=== PATIENT | male | born 1975 | race Caucasian/White ===

== ENCOUNTER 2021-08-25 03:06 | Emergency (ER) | payer BC ==
[2021-08-25] MEDS ORDERED: Aspirin 81 MG Tab.Chew PO ONE (03:09)
[2021-08-25] MEDS ORDERED: Heparin Sodium 5,000 Units/ML Vial IVPUSH ONE (03:27)
[2021-08-25] MEDS ORDERED: Clopidogrel 75 MG Tab PO ONE (03:29)
[2021-08-25] MEDS ORDERED: Morphine 4 MG/ML Syringe IVPUSH ONE (03:30)
[2021-08-25] MEDS ORDERED: Sodium Chloride 0.9% 1,000 ML IV SCH (03:30)
[2021-08-25] MEDS ORDERED: Heparin Sodium/0.45% NaCl 500 ML IV SCH (03:30)
--- NOTE | 2021-08-25 03:51 | EDM.PDOC ---
ED HPI GENERAL MEDICAL PROBLEM - General Chief Complaint: Chest Pain Stated Complaint: SHORTNESS OF BREATH Time Seen by Provider: 08/25/21 03:07 - History of Present Illness INITIAL COMMENTS - FREE TEXT/NARRATIVE: CHIEF COMPLAINT(S): Chest pain HISTORY OF PRESENT ILLNESS: This is a 46-year-old man with a past medical history of tobacco use disorder and obesity who presents to the emergency department as a medical resuscitation via walk-in triage with a chief complaint of chest pain. The patient states that approximately 30 minutes prior to arrival he started to experience central chest pain with radiation to his both arms. He currently rates his pain as 10 out of 10 and sharp. He also describes the pain as pressure-like. He states that he did feel sweaty but denies any nausea or vomiting and feels a weird sensation in his face. He denies any shortness of breath, abdominal pain, nausea or vomiting. He denies any history of recent travel, recent surgery or prior history of DVT or PE. He states that there was no exacerbating factors and nothing seems to be relieving the pain. . REVIEW OF SYSTEMS: Constitutional: Positive for diaphoresis denies fever, chills. Eyes: Denies eye pain Ears, Nose, Mouth, & Throat: Denies earache Cardiovascular: Positive for chest pain Respiratory: Denies shortness of breath Gastrointestinal: Denies Nausea, vomiting, diarrhea, hematochezia. Genitourinary: Denies hematuria Skin:Denies a rash MSK: Positive for bilateral arm pain Neurological: Denies blurred vision Psychiatric: Denies depression PAST MEDICAL HISTORY: As per history of present illness and as reviewed below otherwise noncontributory. SURGICAL HISTORY: As per history of present illness and as reviewed below otherwise noncontributory. SOCIAL HISTORY: As per history of present illness and as reviewed below otherwise noncontributory. FAMILY HISTORY: As per history of present illness and as reviewed below otherwise noncontributory. EXAMINATION OF ORGAN SYSTEMS/BODY AREAS: VITALS: Blood pressure is 130/86, heart rate 91, respiratory rate 22 with an oxygen saturation of 99% on room air. Temperature 36.6. GENERAL: Young man who appears to be mildly diaphoretic and tachypneic. HEAD: Normocephalic, atraumatic. EYES: EOMs intact. PERRL. ENT. External ears WNL. Nares patent. Oropharynx is clear with no erythema or exudate. No uvular or tongue swelling. NECK: Supple, no masses. Trachea is midline. LUNGS: Mild tachypnea without any intercostal retractions. Clear to auscultation bilaterally. No wheezing, rales, stridor or rhonchi.. CARDIOVASCULAR: Regular rate and rhythm with S1-S2. No murmur, rubs or gallops. No edema. No JVD. ABDOMEN: Soft, non-distended, non-tender. Bowel sounds present in all 4 quadrants. No rebound tenderness, guarding, or peritoneal signs. MUSCULOSKELETAL: No deformity. Patient is moving all 4 limbs spontaneously. NEUROLOGICAL: Alert and oriented x 3. No focal neurological deficits noted. SKIN: No rashes, or pallor. No signs of injury. MEDICAL DECISION MAKING AND COURSE IN THE ED WITH INTERPRETATION/REVIEW OF DIAGNOSTIC STUDIES: This is a 46-year-old man with a past medical history of tobacco use disorder and obesity who presents to the emergency department as a medical resuscitation via walk-in triage with a chief complaint of chest pain. Immediately upon entering the resuscitation room the patient was disrobed, placed on continuous cardiac monitoring, and IV access was established by nursing. Patient is able to speak thus displaying a patent airway, breath sounds are equal bilaterally, and patient has palpable pulses in all 4 extre mities. Cardiac monitoring at this time did reveal sinus rhythm and pulse oximetry with good waveform was 99% on room air. Given his chest pain we did obtain a screening EKG. Initial EKG had baseline wander secondary to respiratory variation limiting interpretation however it did read acute AR. There appeared to be elevation in 2, 3, aVF with ST depression in 1, aVL and V2 through V6 consistent with an inferior lateral infarct. We did get a repeat EKG which confirmed the diagnosis. At this time I did provide the patient with aspirin by mouth and started 1 L of normal saline bolus. I contacted [facility] in [place] at the same time as my staff attorney contacted flight crew for a helicopter to fly the patient for definitive management. I spoke with Dr. Leong who recommended TNKase, Brilinta/Plavix, heparin and to transfer as soon as possible. I then spoke with Dr. Pennington in the emergency department who is aware of the patient. The patient has been vaccinated x2 with [employer]. Verbal consent was obtained for TNKase. The patient has no contraindications and did provide verbal consent to provide him with TNKase. We do not have any Brilinta in our hospital therefore did provide the patient with 300 mg of Plavix. Patient was bolused with 4000 units of heparin and started on IV heparin drip at 12. While we are administering medication flight crew did contact us. At this time given the weather helicopter is not available. They stated that fixed wing could be available in 20 minutes. Therefore the patient will be flown via fixed wing to [facility] in [place]. Laboratory: CBC reveals a leukocytosis of 12.36 otherwise unremarkable. PTT is 28.6.BMP reveals hypokalemia at 2.9. Initial troponin is negative. Magnesium is normal. The radiological images were viewed by myself along with reading the report from the radiologist. Chest x-ray does not reveal any acute cardiopulmonary process. On repeat EKG the patient had sinus bradycardia with global ST depression repeat EKG did reveal accelerated junctional rhythm with a widened QRS. Given this I did provide the patient with 2 g of magnesium and given the low potassium I did provide the patient with 40 mEq of potassium chloride.. Patient did not have any evidence of ventricular tachycardia, ventricular fibrillation therefore no further medications were administered. The patient's blood pressure was normal. We did provide the patient with additional 1 L normal saline bolus and started hi gypsy diggs on maintenance fluids at 150 cc an hour. DISPOSITION: The patient was transferred to [facility] in [place] in stable yet serious condition CONDITION: Serious PROCEDURES: Cardiac monitoring interpretation, pulse oximetry interpretation FINAL IMPRESSION(S)/DIAGNOSES: 1. Acute inferior ST elevation AR Critical Care Procedure Note Authorized and performed by: Dennis Islas M.D. Critical Care Time: 60 minutes Due to a high probability of clinically significant, life threatening deteriorat ion, the patient required my highest level of preparedness to intervene emergently and I personally spent this critical care time directly and personally managing the patient. This critical care time included obtaining a history, examining the patient, pulse oximetry; ordering and review of studies; arranging urgent treatment with development of a management plan; evaluation of a patients reponse to treatment; frequent assessment; and discussions with other providers. This critical care time was performed to assess and manage the high probability of imminent, life threatening deterioration that could result in multiorgan failure. It was exclusive of separate billable procedures and treating other patients. Please see MDM section and rest of the note for further information on patient assessment and treatment. Please see MDM section and rest of the note for further information on patient assessment and treatment. Middle Chest Pain Score (Numeric/FACES): 10 Past Medical History - Past Health History Medical/Surgical History: Denies Medical/Surgical History - Infectious Disease History Infectious Disease History: Reports: Chicken Pox Social & Family History - Family History Cardiac: Reports: CAD - Recreational Drug Use Recreational Drug Use: No ED ROS GENERAL - Review of Systems Review Of Systems: See Below ED EXAM, GENERAL - Physical Exam Exam: See Below Course - Vital Signs Last Recorded V/S: Last Vital Signs Temp 36.6 C 08/25/21 03:18 Pulse 61 08/25/21 03:42 Resp 20 08/25/21 03:42 BP 129/79 08/25/21 03:42 Pulse Ox 97 08/25/21 03:42 - Orders/Labs/Meds Orders: Active Orders 24 hr Category Date Time Status Cardiac Monitoring [RC] . DIRECTED Care 08/25/21 03:09 Active EKG 12 Lead [EKG Documentation Completion] [RC] STAT Care 08/25/21 04:01 Active EKG Documentation Completion [RC] STAT Care 08/25/21 03:08 Active EKG Documentation Completion [RC] STAT Care 08/25/21 04:00 Active EKG Documentation Completion [RC] STAT Care 08/25/21 04:01 Active Pulse Oximetry [RC] ASDIRECTED Care 08/25/21 03:09 Active CORONAVIRUS COVID-19 BETTY [MOLEC] Stat Lab 08/25/21 03:43 Received Heparin Sodium/0.45% NaCl [Heparin 25,000 Units in 1/2 Med 08/25/21 03:30 Active NS 500 ML] 500 ml IV TITRATE Potassium Chloride Riders [KCL in Water 40 MEQ/100 ML] Med 08/25/21 04:06 Active 40 meq Premix Bag 1 bag IV ONETIME Sodium Chloride 0.9% [Normal Saline] 1,000 ml Med 08/25/21 03:30 Active IV ASDIRECTED Medication Orders Heparin Sodium/Sodium Chloride (Heparin 25,000 Units In 1/2 Ns 500 Ml) 500 mls @ 20.049 mls/hr IV TITRATE ARUN; Protocol Last Admin: 08/25/21 03:37 Dose: 8.5 units/kg/hr, 20.049 mls/hr Documented by: YAA Cosigned by: SHELL Sodium Chloride (Normal Saline) 1,000 mls @ 999 mls/hr IV ASDIRECTED ARUN Last Admin: 08/25/21 03:15 Dose: 999 mls/hr Documented by: YAA Potassium Chloride 40 meq/ (Premix) 100 mls @ 25 mls/hr IV ONETIME ONE Stop: 08/25/21 08:05 Labs: Laboratory Tests 08/25/21 08/25/21 08/25/21 Range/Units 03:15 03:15 03:15 WBC 12.36 H (4.0-11.0) K/uL RBC 4.87 (4.50-5.90) M/uL Hgb 14.5 (13.0-17.0) g/dL Hct 40.1 (38.0-50.0) % MCV 82.3 (80.0-98.0) fL MCH 29.8 (27.0-32.0) pg MCHC 36.2 (31.0-37.0) g/dL RDW Std Deviation 41.1 (28.0-62.0) fl RDW Coeff of Maia 14 (11.0-15.0) % Plt Count 334 (150-400) K/uL MPV 10.10 (7.40-12.00) fL Add Manual Diff YES Neutrophils % (Manual) 41 L (48.0-80.0) % Band Neutrophils % 2 % Lymphocytes % (Manual) 51 H (16.0-40.0) % Monocytes % (Manual) 6 (0.0-15.0) % Nucleated RBC % 0.0 /100WBC Absolute Seg Neuts 5.1 (1.4-5.7) Band Neutrophils # 0.2 Lymphocytes # (Manual) 6.3 H (0.6-2.4) Monocytes # (Manual) 0.7 (0.0-0.8) Nucleated RBCs # 0 K/uL APTT 28.6 (18.6-31.3) SEC Sodium 142 (136-148) mmol/L Potassium 2.9 L (3.5-5.1) mmol/L Chloride 102 (98-107) mmol/L Carbon Dioxide 27.9 (21.0-32.0) mmol/L BUN 14 (7.0-18.0) mg/dL Creatinine 1.0 (0.8-1.3) mg/dL Est Cr Clr Drug Dosing 110.32 mL/min Estimated GFR (MDRD) > 60.0 ml/min Glucose 162 H (74-106) mg/dL Calcium 8.7 (8.5-10.1) mg/dL Magnesium 2.0 (1.8-2.4) mg/dL Troponin I < 0.050 (0.000-0.056) ng/mL Meds: Medications Generic Name Dose Route Start Last Admin Trade Name Nader PRN Reason Stop Dose Admin Heparin Sodium/Sodium Chloride 500 mls @ 20.049 mls/hr 08/25/21 03:30 08/25/21 03:37 Heparin 25,000 Units In / Ns 500 Ml IV 8.5 units/kg/hr TITRATE ARUN 20.049 mls/hr Administration Protocol 8.5 UNITS/KG/HR Sodium Chloride 1,000 mls @ 999 mls/hr 08/25/21 03:30 08/25/21 03:15 Normal Saline IV 999 mls/hr ASDIRECTED ARUN Administration Potassium Chloride 40 meq/ 100 mls @ 25 mls/hr 08/25/21 04:06 Premix IV 08/25/21 08:05 ONETIME ONE Discontinued Medications Generic Name Dose Route Start Last Admin Trade Name Nader PRN Reason Stop Dose Admin Aspirin 324 mg 08/25/21 03:09 08/25/21 03:37 Aspirin 81 Mg Tab.Chew PO 08/25/21 03:10 324 mg ONETIME ONE Administration Clopidogrel Bisulfate 300 mg 08/25/21 03:29 08/25/21 03:40 Clopidogrel 75 Mg Tab PO 08/25/21 03:30 300 mg ONETIME ONE Administration Heparin Sodium (Porcine) 4,000 units 08/25/21 03:27 08/25/21 03:37 Heparin Sodium 5,000 Units/Ml Vial IVPUSH 08/25/21 03:28 4,000 units .BOLUS ONE Administration Morphine Sulfate 4 mg 08/25/21 03:30 Morphine 4 Mg/Ml Syringe IVPUSH 08/25/21 03:31 ONETIME ONE Departure - Departure Time of Disposition: 04:14 Disposition: DC/Tfer to Acute Hospital 02 Condition: Serious Clinical Impression: STEMI (ST elevation myocardial infarction) - Discharge Information Referrals: PCP,None [Primary Care Provider] - Forms: ED Department Discharge Sepsis Event Note (ED) - Focused Exam Vital Signs: Vital Signs Temp Pulse Resp BP Pulse Ox 08/25/21 03:42 61 20 129/79 97 08/25/21 03:18 36.6 C 91 22 H 130/86 99 - My Orders Last 24 Hours: My Active Orders 08/25/21 03:08 EKG Documentation Completion [RC] STAT 08/25/21 03:09 Cardiac Monitoring [RC] . DIRECTED Pulse Oximetry [RC] ASDIRECTED 08/25/21 03:30 Heparin Sodium/0.45% NaCl [Heparin 25,000 Units in 1/2 NS 500 ML] 500 ml IV TITRATE Sodium Chloride 0.9% [Normal Saline] 1,000 ml IV ASDIRECTED 08/25/21 03:43 CORONAVIRUS COVID-19 BETTY [MOLEC] Stat 08/25/21 04:00 EKG Documentation Completion [RC] STAT 08/25/21 04:01 EKG 12 Lead [EKG Documentation Completion] [RC] STAT EKG Documentation Completion [RC] STAT 08/25/21 04:06 Potassium Chloride Riders [KCL in Water 40 MEQ/100 ML] 40 meq Premix Bag 1 bag IV ONETIME - Assessment/Plan Last 24 Hours: My Active Orders 08/25/21 03:08 EKG Documentation Completion [RC] STAT 08/25/21 03:09 Cardiac Monitoring [RC] . DIRECTED Pulse Oximetry [RC] ASDIRECTED 08/25/21 03:30 Heparin Sodium/0.45% NaCl [Heparin 25,000 Units in 1/2 NS 500 ML] 500 ml IV TITRATE Sodium Chloride 0.9% [Normal Saline] 1,000 ml IV ASDIRECTED 08/25/21 03:43 CORONAVIRUS COVID-19 BETTY [MOLEC] Stat 08/25/21 04:00 EKG Documentation Completion [RC] STAT 08/25/21 04:01 EKG 12 Lead [EKG Documentation Completion] [RC] STAT EKG Documentation Completion [RC] STAT 08/25/21 04:06 Potassium Chloride Riders [KCL in Water 40 MEQ/100 ML] 40 meq Premix Bag 1 bag IV ONETIME
[2021-08-25 04:03] LABS: BLOOD UREA NITROGEN,BUN 14 mg/dL (7.0-18.0); CARBON DIOXIDE,CO2 27.9 mmol/L (21.0-32.0); CHLORIDE,CL 102 mmol/L (98-107); GLUCOSE RANDOM 162 mg/dL (74-106); POTASSIUM,K 2.9 mmol/L (3.5-5.1); SODIUM,NA 142 mmol/L (136-148)
--- NOTE | 2021-08-25 04:04 | PCM.EKG ---
#1 Interpretation EKG Date: 08/25/21 Time: 03:11 Rhythm: NSR Rate (Beats/Min): 80 [place]: Normal P-Wave: Present QRS: Normal ST-T: Elevated (II, III, aVF, w/ depressions in 1,aVL, V2-V4) QT: Normal Comparison: NA - No Prior EKG EKG Interpretation Comments: Sinus Rhythm with Inferior STEMI #2 Interpretation EKG Date: 08/25/21 Time: 03:16 Rhythm: NSR Rate (Beats/Min): 79 [place]: Normal P-Wave: Present QRS: Normal ST-T: Elevated (II, III, aVF, w/ depressions in 1,aVL, V2-V4) QT: Normal Comparison: No Change (Today) EKG Interpretation Comments: Sinus Rhythm with Inferior STEMI
[2021-08-25] MEDS ORDERED: Potassium Chloride Riders 40 MEQ in Premix Bag 1 BAG IV ONE (04:06)
--- NOTE | 2021-08-25 04:12 | CR ---
HISTORY: Shortness of breath. COMPARISON: None available FINDINGS: A portable erect AP view of the chest was obtained at 0326 hours. The lungs are clear. No focal or diffuse infiltrates are present. The heart is normal in size. The mediastinum is normal in appearance. The osseous structures are normal in appearance for the patient`s age. IMPRESSION: Normal portable chest single view. Dictated by Kong Jules MD @ 08/25/2021 4:09:51 AM (Electronically Signed)
--- NOTE | 2021-08-25 04:38 | PCM.EKG ---
#3 Interpretation EKG Date: 08/25/21 Time: 03:53 Rhythm: NSR Rate (Beats/Min): 47 [place]: Normal P-Wave: Present QRS: Normal ST-T: Depressed (throughout) QT: Normal Comparison: Change From Previous EKG (prior revealed STEMI) EKG Interpretation Comments: Sinus BRadycardia with diffuse ST depressions #4 Interpretation EKG Date: 08/25/21 Time: 03:54 Rhythm: Other (Accelerated Junctional Rhythm) [place]: Normal P-Wave: Variable QRS: Wide ST-T: Depressed (depression in 1 aVL V2-v6 with JENS in aVR) QT: Normal Comparison: Change From Previous EKG (prior sinus bradycardia) EKG Interpretation Comments: Accelerated Junctional Rhythm with ischemia
[2021-08-25] MEDS ORDERED: Tenecteplase 50 MG Kit IV STA (05:23)
[2021-08-25] MEDS ORDERED: Magnesium Sulfate/Water 2 GM in Premix Bag 1 BAG IV ONE (05:23)
== END 2021-08-25 04:20 ==
LOC: MW.ED 03:06
DX: I21.19 ST elevation (STEMI) myocardial infarction involving other coronary artery of inferior wall (principal)
CPT/HCPCS: 36415; 71045; 80048; 83735; 84484; 85025; 85730; 87635; 93005; 96365; 96368; 96375; 99291; A9270; J1644; J3101; J3475; J3480; J7030; U0002